=== PATIENT | female | born 1965 | race Two or more races ===

== ENCOUNTER 2021-11-24 12:16 | Emergency (ER) | payer MEDICAID, OTHER ==
[~2021-11-24] VITALS: Ht 165.1 cm; Wt 69.4 kg
[2021-11-24 14:54] VITALS: BP 125/65
== END 2021-11-24 15:32 | disposition home or self-care (01) ==
LOC: ER 12:16
DX: M79.604 Pain in right leg (principal)
CPT/HCPCS: 93971